=== PATIENT | male | born 1995 | race Asian ===

== ENCOUNTER → 2019-08-08 | Outpatient (CLI) | payer MEDICAID, OTHER | LOC: M OUTALCOH 08:05 | PROVIDERS: ATTEND Psychiatry & Neurology Addiction Medicine | DX: F10.20 Alcohol dependence, uncomplicated (principal) ==

== ENCOUNTER 2019-08-17 15:49 | Outpatient (RCR) | payer MEDICAID | END 2019-08-18 | LOC: M OUTALCOH 15:49 | PROVIDERS: ATTEND Psychiatry & Neurology Addiction Medicine | DX: F10.20 Alcohol dependence, uncomplicated (principal) ==

== ENCOUNTER 2019-09-12 16:00 | Outpatient (RCR) | payer MEDICAID | END 2019-09-16 | LOC: M OUTALCOH 16:00 | PROVIDERS: ATTEND Psychiatry & Neurology Addiction Medicine | DX: F10.20 Alcohol dependence, uncomplicated (principal) ==

== ENCOUNTER → 2019-10-17 | Outpatient (RCR) | payer MEDICAID | LOC: M OUTALCOH 09-21 11:03 | PROVIDERS: ATTEND Psychiatry & Neurology Addiction Medicine | DX: F10.20 Alcohol dependence, uncomplicated (principal) ==

== ENCOUNTER 2019-11-15 11:00 | Outpatient (RCR) | payer MEDICAID | END 2019-11-16 | LOC: M OUTALCOH 11:00 | PROVIDERS: ATTEND Psychiatry & Neurology Addiction Medicine | DX: F10.20 Alcohol dependence, uncomplicated (principal) ==

== ENCOUNTER → 2019-11-20 | Outpatient (REF) | payer OTHER ==
[2019-11-20 14:24] LABS: ALBUMIN 4.2 GM/DL (3.2-5.2); ALT/SGPT 52 U/L (12-78); BILIRUBIN,TOTAL 0.6 MG/DL (0.2-1.0); BLOOD UREA NITROGEN 12 MG/DL (7-18); CALCIUM LEVEL 9.6 MG/DL (8.5-10.1); CARBON DIOXIDE LEVEL 26 MEQ/L (21-32); CHLORIDE LEVEL 105 MEQ/L (98-107); CHOLESTEROL LEVEL 199 MG/DL (<200); CHOLESTEROL RISK RATIO 4.326 (<5); CREATININE FOR GFR 0.94 MG/DL (0.70-1.30); GLOMERULAR FILTRATION RATE > 60.0 (>60); GLUCOSE, FASTING 116 MG/DL (70-100); HDL CHOLESTEROL 46 MG/DL (>40); LDL CHOLESTEROL 134 MG/DL (<100); NON-HDL-C 153 MG/DL; POTASSIUM SERUM 3.9 MEQ/L (3.5-5.1); SODIUM LEVEL 139 MEQ/L (136-145); TOTAL PROTEIN 7.9 GM/DL (6.4-8.2); TRIGLYCERIDES LEVEL 95 MG/DL (<150)
[2019-11-20 14:44] LABS: HEMOGLOBIN A1c 5.9 %
== END ==
LOC: M SFHCPLAZ 10:10
DX: Z00.00 Encounter for general adult medical examination without abnormal findings (principal); E66.9 Obesity, unspecified

== ENCOUNTER 2020-01-15 08:45 | Outpatient (RCR) | payer MEDICAID | END 2020-01-16 | LOC: M OUTALCOH 08:45 | PROVIDERS: ATTEND Counselor Addiction (Substance Use Disorder) | DX: F10.20 Alcohol dependence, uncomplicated (principal) ==

== ENCOUNTER → 2020-02-01 | Outpatient (CLI) | payer MEDICAID, OTHER ==
[~2020-02-01] MED LIST: ABIL10TA9 PO; ACAM0.05 PO; ARIP1TAB PO; D31000TA2 PO; DULO1CAP5 PO; DULO1CAP6 PO; METF500T13 PO; OMEG10006 PO; PRAZ1CAP PO; TRAZ-252 PO; VITA50005 PO; VIVI380I IM
[2020-02-01 13:45] LABS: ALT/SGPT 54 U/L (12-78); BILIRUBIN,DIRECT 0.1 MG/DL (0.0-0.2); BILIRUBIN,TOTAL 0.4 MG/DL (0.2-1.0); TOTAL PROTEIN 7.6 GM/DL (6.4-8.2)
[2020-02-03 06:08] LABS: MUMPS VIRUS IgG ANTIBODY >300.0 AU/mL (Immune >10.9); RUBEOLA IgG ANTIBODY >300.0 AU/mL (Immune >16.4)
== END ==
LOC: M PLALAB 11:43
PROVIDERS: ATTEND Student in an Organized Health Care Education/Training Program
DX: Z01.84 Encounter for antibody response examination (principal); F10.10 Alcohol abuse, uncomplicated; Z11.1 Encounter for screening for respiratory tuberculosis

== ENCOUNTER 2020-02-12 14:00 | Outpatient (RCR) | payer MEDICAID, OTHER | END 2020-02-16 | LOC: M OUTALCOH 14:00 | PROVIDERS: ATTEND Psychiatry & Neurology Addiction Medicine | DX: F10.20 Alcohol dependence, uncomplicated (principal); F17.200 Nicotine dependence, unspecified, uncomplicated ==

== ENCOUNTER 2020-02-22 16:00 | Outpatient (RCR) | payer MEDICAID, OTHER | END 2020-03-18 | LOC: M OUTALCOH 16:00 | PROVIDERS: ATTEND Psychiatry & Neurology Psychiatry | DX: F10.20 Alcohol dependence, uncomplicated (principal); F17.200 Nicotine dependence, unspecified, uncomplicated ==

== ENCOUNTER → 2020-03-29 | Outpatient (CLI) | payer OTHER | LOC: M OUTALCOH 08:47 | PROVIDERS: ATTEND Psychiatry & Neurology Addiction Medicine | DX: F10.20 Alcohol dependence, uncomplicated (principal); F17.200 Nicotine dependence, unspecified, uncomplicated ==

== ENCOUNTER 2020-04-08 19:45 | Emergency (ER) | payer OTHER ==
[~2020-04-08] VITALS: Ht 167.6 cm; Wt 109.1 kg
[2020-04-08] MEDS ORDERED: OMEG10006 PO (20:33)
[2020-04-08] MEDS ORDERED: DULO1CAP5 PO (20:33)
[2020-04-08] MEDS ORDERED: D31000TA2 PO (20:33)
[2020-04-08] MEDS ORDERED: VITA50005 PO (20:33)
[2020-04-08] MEDS ORDERED: VIVI380I IM (20:33)
[2020-04-08] MEDS ORDERED: TRAZ-252 PO (20:33)
[2020-04-08] MEDS ORDERED: ARIP1TAB PO (20:33)
[2020-04-08] MEDS ORDERED: ABIL10TA9 PO (20:33)
[2020-04-08] MEDS ORDERED: PRAZ1CAP PO (20:33)
[2020-04-08] MEDS ORDERED: METF500T13 PO (20:33)
[2020-04-08] MEDS ORDERED: DULO1CAP6 PO (20:33)
[2020-04-08] MEDS ORDERED: ACAM0.05 PO (20:33)
[2020-04-08 22:52] VITALS: BP 129/73
== END 2020-04-08 22:55 | disposition home or self-care (01) ==
LOC: M ED 19:45
DX: Z04.6 Encounter for general psychiatric examination, requested by authority (principal); F33.9 Major depressive disorder, recurrent, unspecified; F41.9 Anxiety disorder, unspecified; Z79.899 Other long term (current) drug therapy; Z79.84 Long term (current) use of oral hypoglycemic drugs; F17.210 Nicotine dependence, cigarettes, uncomplicated

== ENCOUNTER → 2020-04-17 | Outpatient (RCR) | payer OTHER | LOC: M OUTALCOH 04-05 15:51 | PROVIDERS: ATTEND Psychiatry & Neurology Addiction Medicine | DX: F10.20 Alcohol dependence, uncomplicated (principal); F17.200 Nicotine dependence, unspecified, uncomplicated ==

== ENCOUNTER → 2020-04-26 | Outpatient (REF) | payer OTHER | LOC: M SFHCPLAZ 14:20 | DX: F10.10 Alcohol abuse, uncomplicated (principal); R73.03 Prediabetes ==

== ENCOUNTER → 2020-05-08 | Outpatient (REF) | payer OTHER ==
[2020-05-08 13:56] LABS: HEMOGLOBIN A1c 5.6 %
[2020-05-08 14:02] LABS: ALBUMIN 4.3 GM/DL (3.2-5.2); ALT/SGPT 35 U/L (12-78); BILIRUBIN,DIRECT 0.1 MG/DL (0.0-0.2); BILIRUBIN,TOTAL 0.5 MG/DL (0.2-1.0); TOTAL PROTEIN 7.8 GM/DL (6.4-8.2)
[2020-05-08 14:47] LABS: HEPATITIS C VIRUS ABY INDEX 0.1 INDEX (<0.8)
[2020-05-08 14:48] LABS: HIV 1&2 SCREEN CENTAUR NEGATIVE (NEGATIVE)
== END ==
LOC: M SFHCPLAZ 11:56
DX: F10.10 Alcohol abuse, uncomplicated (principal); R73.03 Prediabetes; Z91.89 Other specified personal risk factors, not elsewhere classified; Z00.00 Encounter for general adult medical examination without abnormal findings

== ENCOUNTER 2020-05-17 08:00 | Outpatient (RCR) | payer OTHER | END 2020-05-18 | LOC: M OUTALCOH 08:00 | PROVIDERS: ATTEND Psychiatry & Neurology Addiction Medicine | DX: F10.20 Alcohol dependence, uncomplicated (principal); F17.200 Nicotine dependence, unspecified, uncomplicated ==

== ENCOUNTER → 2020-06-17 | Outpatient (RCR) | payer OTHER | LOC: M OUTALCOH 05-22 15:19 | PROVIDERS: ATTEND Psychiatry & Neurology Addiction Medicine | DX: F10.20 Alcohol dependence, uncomplicated (principal); F17.200 Nicotine dependence, unspecified, uncomplicated ==

== ENCOUNTER 2020-06-28 23:12 | Emergency (ER) | payer OTHER ==
[~2020-06-28 23:12] MED LIST changes: -NALT50TA4; -OMEG1CAP4
[2020-06-28] MEDS ORDERED: NALT50TA4 (23:30)
[2020-06-28] MEDS ORDERED: OMEG1CAP4 (23:30)
[2020-06-29] MEDS ORDERED: LORazepam 2 MG TAB PO ONE
[2020-06-29 00:23] LABS: HEMATOCRIT 49.4 % (42.0-52.0); HEMOGLOBIN 16.3 g/dl (13.5-17.5); MEAN CORPUSCULAR HEMOGLOBIN 28.4 pg (27.0-33.0); MEAN CORPUSCULAR VOLUME 86.2 fl (80.0-96.0); PLATELET COUNT, AUTOMATED 292 10^3/uL (150-450); RED BLOOD COUNT 5.73 10^6/uL (4.30-6.10); WHITE BLOOD COUNT 10.2 10^3/uL (4.0-10.0)
[2020-06-29] MEDS ORDERED: NICOTINE 21MG/24HR 1 EA TRANSDERMAL TD ONE (00:45)
[2020-06-29 00:48] LABS: AMPHETAMINES LEVEL URINE NEGATIVE (NEGATIVE); BARBITURATES URINE NEGATIVE (NEGATIVE); BENZODIAZEPINES URINE NEGATIVE (NEGATIVE); CANNABINOIDS URINE NEGATIVE (NEGATIVE); COCAINE METABOLITE URINE NEGATIVE (NEGATIVE); METHADONE URINE NEGATIVE (NEGATIVE); OPIATES URINE NEGATIVE (NEGATIVE); PHENCYCLIDINE URINE NEGATIVE (NEGATIVE)
[2020-06-29 01:03] LABS: ACETAMINOPHEN LEVEL < 2.0 UG/ML (10.0-30.0); ALBUMIN 4.5 GM/DL (3.2-5.2); ALT/SGPT 64 U/L (12-78); BILIRUBIN,DIRECT < 0.1 MG/DL (0.0-0.2); BILIRUBIN,TOTAL 0.2 MG/DL (0.2-1.0); BLOOD UREA NITROGEN 8 MG/DL (7-18); CALCIUM LEVEL 8.6 MG/DL (8.5-10.1); CARBON DIOXIDE LEVEL 26 MEQ/L (21-32); CHLORIDE LEVEL 111 MEQ/L (98-107); CREATININE FOR GFR 0.93 MG/DL (0.70-1.30); ETHYL ALCOHOL (ETHANOL) 0.256 % (0.000-0.010); GLOMERULAR FILTRATION RATE > 60.0 (>60); GLUCOSE, FASTING 141 MG/DL (70-100); POTASSIUM SERUM 3.9 MEQ/L (3.5-5.1); SALICYLATE LEVEL 2.1 MG/DL (5.0-30.0); SODIUM LEVEL 143 MEQ/L (136-145); TOTAL PROTEIN 8.2 GM/DL (6.4-8.2)
[2020-06-29 12:41] VITALS: BP 141/83
== END 2020-06-29 12:43 | disposition home or self-care (01) ==
LOC: M ED 23:12
DX: F10.129 Alcohol abuse with intoxication, unspecified (principal); Z91.5 Personal history of self-harm; F17.200 Nicotine dependence, unspecified, uncomplicated; Z79.84 Long term (current) use of oral hypoglycemic drugs; Z79.899 Other long term (current) drug therapy
CPT/HCPCS: 80048; 80076; 80307; 84443; 85027; 99284; G0480

== ENCOUNTER → 2020-06-28 | Outpatient (CLI) | payer OTHER ==
[~2020-06-28] MED LIST changes: +NALT50TA4; +OMEG1CAP4
== END ==
LOC: M PLALAB 13:52
PROVIDERS: ATTEND Psychiatry & Neurology Addiction Medicine
DX: F10.10 Alcohol abuse, uncomplicated (principal)

== ENCOUNTER 2020-07-17 08:45 | Outpatient (RCR) | payer OTHER ==
[~2020-07-17 08:45] MED LIST changes: +NALT50TA4; +OMEG1CAP4
== END 2020-07-18 ==
LOC: M OUTALCOH 08:45
PROVIDERS: ATTEND Psychiatry & Neurology Addiction Medicine
DX: F10.20 Alcohol dependence, uncomplicated (principal); F17.200 Nicotine dependence, unspecified, uncomplicated

== ENCOUNTER 2020-07-30 13:00 | Outpatient (RCR) | payer OTHER | END 2020-08-18 | LOC: M OUTALCOH 13:00 | PROVIDERS: ATTEND Psychiatry & Neurology Addiction Medicine | DX: F10.20 Alcohol dependence, uncomplicated (principal); F17.200 Nicotine dependence, unspecified, uncomplicated ==